=== PATIENT | male | born 1980 | race Two or more races ===

== ENCOUNTER 2019-08-16 14:07 | Inpatient (IN) | payer OTHER ==
[2019-08-16 19:29] VITALS: BMI 28.1
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
[2019-08-16] MEDS ORDERED: IBUPROFEN 400 MG TABLET (FP) PO PRN (19:54)
[2019-08-16] MEDS ORDERED: MAGNESIUM CITRATE 300 ML BOTTLE PO PRN (19:54)
[2019-08-16] MEDS ORDERED: MENTHOL/PHENOL 1 EACH UD MM PRN (19:54)
[2019-08-16] MEDS ORDERED: ACETAMINOPHEN 325 MG TABLET (FP) PO PRN ×2 (19:54)
[2019-08-16] MEDS ORDERED: NICOTINE POLACRILEX 2 MG GUM BUC PRN (19:54)
[2019-08-16] MEDS ORDERED: BISMUTH SUBSALICYLATE 524 MG/30 ML UD PO PRN (19:54)
[2019-08-16] MEDS ORDERED: MAG HYDROX/AL HYDROX/SIMETH 30 ML UNIT-DOSE CUP PO PRN (19:54)
[2019-08-16] MEDS ORDERED: MELATONIN 5 MG TABLETS PO PRN (19:54)
[2019-08-16] MEDS ORDERED: MAGNESIUM HYDROX 2400MG/30ML ORAL SUSPENSION 30 ML CUP PO PRN (19:54)
[2019-08-16] MEDS ORDERED: ALBUTEROL SO4 0.083% IH SOL 2.5 MG/3 ML VIAL.NEB. NEB PRN (19:55)
[2019-08-16] MEDS ORDERED: cloNIDine HCL 0.1 MG TABLET PO PRN (19:56)
[2019-08-16] MEDS ORDERED: METHADONE HCL 10 MG TABLET (FOR DETOX USE ONLY) PO ONE (19:56)
[2019-08-16] MEDS ORDERED: METHADONE (DETOX) 20 MG, METHADONE (DETOX) 5 MG PO SCH (20:05)
[2019-08-16] MEDS ORDERED: METHADONE HCL 10 MG TABLET (FOR DETOX USE ONLY) ONE (20:36)
[2019-08-16] MEDS ORDERED: METHADONE HCL 5 MG TABLET (FOR DETOX USE ONLY) ONE (20:37)
[2019-08-16] MEDS: SULFAMETHOXAZOLE/TRIMETHOPRIM 800MG/160MG D.S. TABLET PO SCH (22:35)
[2019-08-16] MEDS: THIAMINE HCL 100 MG TABLET (FP) PO SCH (22:35)
[2019-08-16] MEDS: hydrOXYzine PAMOATE 25 MG CAPSULE (FP) PO PRN (22:36)
[2019-08-16] MEDS: BACITRACIN/POLYMYXIN B SULFATE 15 GM TUBE TP SCH (22:43)
[2019-08-17] MEDS ORDERED: METHADONE HCL 10 MG TABLET (FOR DETOX USE ONLY) PO ONE (10:00)
[2019-08-17] MEDS: PRENATAL VITAMINS W/ FOLIC ACID TABLET (FP) PO SCH (10:03)
[2019-08-17] MEDS: SULFAMETHOXAZOLE/TRIMETHOPRIM 800MG/160MG D.S. TABLET PO SCH ×2 (10:03→22:48)
[2019-08-17] MEDS: BACITRACIN/POLYMYXIN B SULFATE 15 GM TUBE TP SCH ×2 (10:03→22:48)
[2019-08-17] MEDS: hydrOXYzine PAMOATE 25 MG CAPSULE (FP) PO PRN (10:05)
[2019-08-17] MEDS: METHOCARBAMOL 500 MG TABLET PO PRN (10:05)
--- NOTE | 2019-08-17 10:32 | PN ---
BHS COWS - Scale Resting Pulse: 0= [place] 80 or Below Sweatin= Beads of Sweat on Face Restless Observation: 1= Difficult to Sit Still Pupil Size: 0= Normal to Room Light Bone or Joint Aches: 4=Acute Joint/Muscle Pain Runny Nose/ Eye Tearin= None GI Upset > 30mins: 0= None Tremor Observation of Outstretched Hands: 2= Slight Tremor Visible Yawning Observation: 1= 1-2x During Session Anxiety or Irritability: 2=Irritable/Anxious Goose Flesh Skin: 0=Smooth Skin COWS Score: 13 S Progress Note (SOAP) Subjective: c/o anxiety, irritability, sweats, muscle aches, and agitation. Objective: 08/17/19 10:30 Vital Signs 08/17/19 08/17/19 08/17/19 03:30 06:02 09:24 Temperature 98.5 F 99.2 F Pulse Rate 73 80 Respiratory 18 16 18 Rate Blood Pressure 121/74 122/73 Labs pending. Assessment: 08/17/19 10:31 AOX3, in no acute respiratory distress. Full rom, ambulating in the unit. Withdrawal symptoms. Plan: continue detox.
[2019-08-17 10:58] LABS: ALBUMIN 3.5 g/dl (3.4-5.0); BILIRUBIN,TOTAL 0.7 mg/dL (0.2-1); BLOOD UREA NITROGEN 7.2 mg/dL (7-18); CALCIUM 8.9 mg/dL (8.5-10.1); CREATININE 0.8 mg/dL (0.55-1.3); POTASSIUM 4.2 mmol/L (3.5-5.1); TOT PROT 7.4 g/dl (6.4-8.2)
[2019-08-17 11:12] LABS: HEMATOCRIT 48.1 % (35.4-49); HEMOGLOBIN 16.4 GM/dL (11.7-16.9); MCH 31.7 pg (25.7-33.7); MCHC 34.1 g/dl (32.0-35.9); MEAN CELL VOLUME 93.2 fl (80-96); MEAN PLT VOLUME 8.3 fl (7.5-11.1); PLATELET COUNT 314 K/MM3 (134-434); RBC 5.16 M/mm3 (4.00-5.60); RDW 14.4 % (11.9-15.9); WHITE BLOOD COUNT 10.5 K/mm3 (4.0-10.0)
--- NOTE | 2019-08-17 19:14 | PN ---
[facility]ley Progress Note Note: patient with less withdrawal symptom Vital Signs Temperature 100.2 F H 08/17/19 17:17 Pulse Rate 66 08/17/19 17:17 Respiratory Rate 18 08/17/19 17:17 Blood Pressure 128/76 08/17/19 17:17 O2 Sat by Pulse Oximetry (%) will d/c methadone 25 mgs tonight close monitoring encourage oral fluid
[2019-08-17] MEDS: THIAMINE HCL 100 MG TABLET (FP) PO SCH (22:48)
--- NOTE | 2019-08-18 09:31 | PN ---
BHS COWS - Scale Resting Pulse: 1= [place] 81-100 Sweatin= Chills/Flushing Restless Observation: 0= Sits Still Pupil Size: 1= Pupils >than Normal Bone or Joint Aches: 1= Mild Discomfort Runny Nose/ Eye Tearin= None GI Upset > 30mins: 1= Stomach Cramp Tremor Observation of Outstretched Hands: 2= Slight Tremor Visible Yawning Observation: 0= None Anxiety or Irritability: 2=Irritable/Anxious Goose Flesh Skin: 3=Piloerection COWS Score: 12 BHS Progress Note (SOAP) Subjective: 39 years old male admitted on 08/16/19 for opiate withdrawal sx management treated with methadone detox regimen patient tolerated well ate breakfast resting on bed feeling hot and cold left arm dry dressing clean and dry intact patient agrees to allow the provider to examine the skin abrasion later Objective: 08/18/19 09:45 Vital Signs Temperature 96.9 F L 08/18/19 09:01 Pulse Rate 81 08/18/19 09:01 Respiratory Rate 18 08/18/19 09:01 Blood Pressure 120/73 08/18/19 09:01 O2 Sat by Pulse Oximetry (%) Laboratory Last Values WBC 10.5 K/mm3 (4.0-10.0) H 08/17/19 07:50 RBC 5.16 M/mm3 (4.00-5.60) 08/17/19 07:50 Hgb 16.4 GM/dL (11.7-16.9) 08/17/19 07:50 Hct 48.1 % (35.4-49) 08/17/19 07:50 MCV 93.2 fl (80-96) 08/17/19 07:50 MCH 31.7 pg (25.7-33.7) 08/17/19 07:50 MCHC 34.1 g/dl (32.0-35.9) 08/17/19 07:50 RDW 14.4 % (11.9-15.9) 08/17/19 07:50 Plt Count 314 K/MM3 (134-434) D 08/17/19 07:50 MPV 8.3 fl (7.5-11.1) 08/17/19 07:50 Sodium 138 mmol/L (136-145) 08/17/19 07:50 Potassium 4.2 mmol/L (3.5-5.1) 08/17/19 07:50 Chloride 104 mmol/L (98-107) 08/17/19 07:50 Carbon Dioxide 28 mmol/L (21-32) 08/17/19 07:50 Anion Gap 6 MMOL/L (8-16) L 08/17/19 07:50 BUN 7.2 mg/dL (7-18) 08/17/19 07:50 Creatinine 0.8 mg/dL (0.55-1.3) 08/17/19 07:50 Est GFR (CKD-EPI)AfAm 128.60 08/17/19 07:50 Est GFR (CKD-EPI)NonAf 110.96 08/17/19 07:50 Random Glucose 79 mg/dL (74-106) 08/17/19 07:50 Calcium 8.9 mg/dL (8.5-10.1) 08/17/19 07:50 Total Bilirubin 0.7 mg/dL (0.2-1) 08/17/19 07:50 AST 39 U/L (15-37) H 08/17/19 07:50 ALT 46 U/L (13-61) 08/17/19 07:50 Alkaline Phosphatase 104 U/L (45-117) 08/17/19 07:50 Total Protein 7.4 g/dl (6.4-8.2) 08/17/19 07:50 Albumin 3.5 g/dl (3.4-5.0) 08/17/19 07:50 RPR Titer Nonreactive (NONREACTIVE) 08/17/19 07:50 lab noted Assessment: 08/18/19 09:46 opiate withdrawal sx discuss medication assisted treatment program Plan: continue methadone detox regimen forklift picker narcan from pharmacy
[2019-08-18] MEDS ORDERED: METHADONE HCL 5 MG TABLET (FOR DETOX USE ONLY) PO ONE (10:00)
[2019-08-18] MEDS: PRENATAL VITAMINS W/ FOLIC ACID TABLET (FP) PO SCH (10:09)
[2019-08-18] MEDS: SULFAMETHOXAZOLE/TRIMETHOPRIM 800MG/160MG D.S. TABLET PO SCH ×2 (10:09→21:31)
[2019-08-18] MEDS: BACITRACIN/POLYMYXIN B SULFATE 15 GM TUBE TP SCH ×2 (10:10→21:33)
[2019-08-18] MEDS: hydrOXYzine PAMOATE 25 MG CAPSULE (FP) PO PRN (17:18)
[2019-08-18] MEDS: THIAMINE HCL 100 MG TABLET (FP) PO SCH (21:32)
[2019-08-19] MEDS: METHOCARBAMOL 500 MG TABLET PO PRN (06:23)
[2019-08-19] MEDS: hydrOXYzine PAMOATE 25 MG CAPSULE (FP) PO PRN (06:23)
[2019-08-19 09:20] VITALS: BP 120/78; PULSE 86; TEMP 98.5
--- NOTE | 2019-08-19 09:35 | PN ---
BHS COWS - Scale Resting Pulse: 1= [place] 81-100 Sweatin= Chills/Flushing Restless Observation: 0= Sits Still Pupil Size: 0= Normal to Room Light Bone or Joint Aches: 1= Mild Discomfort Runny Nose/ Eye Tearin= Nasal Congestion GI Upset > 30mins: 1= Stomach Cramp Tremor Observation of Outstretched Hands: 1= Tremor [place], Not Seen Yawning Observation: 1= 1-2x During Session Anxiety or Irritability: 1=Feels Anxious/Irritable Goose Flesh Skin: 0=Smooth Skin COWS Score: 8 BHS Progress Note (SOAP) Subjective: 39 years old male admitted on 08/16/19 for opiate withdrawal sx management treated with methadone detox regimen patient tolerated well feeling better today had low grade fever early this morning ate breakfast tolerated food well ambulating on hallway discuss aftercare with staff Objective: 08/19/19 09:32 Vital Signs Temperature 98.5 F 08/19/19 09:09 Pulse Rate 86 08/19/19 09:09 Respiratory Rate 18 08/19/19 09:09 Blood Pressure 120/78 08/19/19 09:09 O2 Sat by Pulse Oximetry (%) Laboratory Last Values WBC 10.5 K/mm3 (4.0-10.0) H 08/17/19 07:50 RBC 5.16 M/mm3 (4.00-5.60) 08/17/19 07:50 Hgb 16.4 GM/dL (11.7-16.9) 08/17/19 07:50 Hct 48.1 % (35.4-49) 08/17/19 07:50 MCV 93.2 fl (80-96) 08/17/19 07:50 MCH 31.7 pg (25.7-33.7) 08/17/19 07:50 MCHC 34.1 g/dl (32.0-35.9) 08/17/19 07:50 RDW 14.4 % (11.9-15.9) 08/17/19 07:50 Plt Count 314 K/MM3 (134-434) D 08/17/19 07:50 MPV 8.3 fl (7.5-11.1) 08/17/19 07:50 Sodium 138 mmol/L (136-145) 08/17/19 07:50 Potassium 4.2 mmol/L (3.5-5.1) 08/17/19 07:50 Chloride 104 mmol/L (98-107) 08/17/19 07:50 Carbon Dioxide 28 mmol/L (21-32) 08/17/19 07:50 Anion Gap 6 MMOL/L (8-16) L 08/17/19 07:50 BUN 7.2 mg/dL (7-18) 08/17/19 07:50 Creatinine 0.8 mg/dL (0.55-1.3) 08/17/19 07:50 Est GFR (CKD-EPI)AfAm 128.60 08/17/19 07:50 Est GFR (CKD-EPI)NonAf 110.96 08/17/19 07:50 Random Glucose 79 mg/dL (74-106) 08/17/19 07:50 Calcium 8.9 mg/dL (8.5-10.1) 08/17/19 07:50 Total Bilirubin 0.7 mg/dL (0.2-1) 08/17/19 07:50 AST 39 U/L (15-37) H 08/17/19 07:50 ALT 46 U/L (13-61) 08/17/19 07:50 Alkaline Phosphatase 104 U/L (45-117) 08/17/19 07:50 Total Protein 7.4 g/dl (6.4-8.2) 08/17/19 07:50 Albumin 3.5 g/dl (3.4-5.0) 08/17/19 07:50 RPR Titer Nonreactive (NONREACTIVE) 08/17/19 07:50 lab noted Assessment: 08/19/19 09:33 opiate withdrawal sx Plan: continue methadone detox regimen
[2019-08-19] MEDS ORDERED: METHADONE HCL 10 MG TABLET (FOR DETOX USE ONLY) PO ONE (10:00)
[2019-08-19] MEDS: SULFAMETHOXAZOLE/TRIMETHOPRIM 800MG/160MG D.S. TABLET PO SCH (10:18)
[2019-08-19] MEDS: BACITRACIN/POLYMYXIN B SULFATE 15 GM TUBE TP SCH (10:18)
[2019-08-19] MEDS: PRENATAL VITAMINS W/ FOLIC ACID TABLET (FP) PO SCH (10:18)
--- NOTE | 2019-08-19 13:48 | DS ---
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 patient is alert oriented x 3 respiratory clear lung bilaterally on auscultation abdomen soft no rebound tenderness skin warm and dry - Physical Exam Results Vital Signs: Vital Signs Temperature 98.5 F 08/19/19 09:09 Pulse Rate 86 08/19/19 09:09 Respiratory Rate 18 08/19/19 09:09 Blood Pressure 120/78 08/19/19 09:09 O2 Sat by Pulse Oximetry (%) Pertinent Admission Physical Exam Findings: opiate withdrawal sx Laboratory Last Values WBC 10.5 K/mm3 (4.0-10.0) H 08/17/19 07:50 RBC 5.16 M/mm3 (4.00-5.60) 08/17/19 07:50 Hgb 16.4 GM/dL (11.7-16.9) 08/17/19 07:50 Hct 48.1 % (35.4-49) 08/17/19 07:50 MCV 93.2 fl (80-96) 08/17/19 07:50 MCH 31.7 pg (25.7-33.7) 08/17/19 07:50 MCHC 34.1 g/dl (32.0-35.9) 08/17/19 07:50 RDW 14.4 % (11.9-15.9) 08/17/19 07:50 Plt Count 314 K/MM3 (134-434) D 08/17/19 07:50 MPV 8.3 fl (7.5-11.1) 08/17/19 07:50 Sodium 138 mmol/L (136-145) 08/17/19 07:50 Potassium 4.2 mmol/L (3.5-5.1) 08/17/19 07:50 Chloride 104 mmol/L (98-107) 08/17/19 07:50 Carbon Dioxide 28 mmol/L (21-32) 08/17/19 07:50 Anion Gap 6 MMOL/L (8-16) L 08/17/19 07:50 BUN 7.2 mg/dL (7-18) 08/17/19 07:50 Creatinine 0.8 mg/dL (0.55-1.3) 08/17/19 07:50 Est GFR (CKD-EPI)AfAm 128.60 08/17/19 07:50 Est GFR (CKD-EPI)NonAf 110.96 08/17/19 07:50 Random Glucose 79 mg/dL (74-106) 08/17/19 07:50 Calcium 8.9 mg/dL (8.5-10.1) 08/17/19 07:50 Total Bilirubin 0.7 mg/dL (0.2-1) 08/17/19 07:50 AST 39 U/L (15-37) H 08/17/19 07:50 ALT 46 U/L (13-61) 08/17/19 07:50 Alkaline Phosphatase 104 U/L (45-117) 08/17/19 07:50 Total Protein 7.4 g/dl (6.4-8.2) 08/17/19 07:50 Albumin 3.5 g/dl (3.4-5.0) 08/17/19 07:50 RPR Titer Nonreactive (NONREACTIVE) 08/17/19 07:50 lab noted - Treatment Hospital Course: Detox Protocol Followed, Detoxed Safely, Responded well, Discharged Condition Good, Rehab Referral Accepted Patient has Accepted [facility] - Medication Discharge Medications: Ambulatory Orders Naloxone HCl [Narcan] 4 mg NS ASDIR PRN #1 spray 08/18/19 Albuterol Sulfate Inhaler - [Ventolin HFA Inhaler -] 2 inh PO Q4H PRN #1 inhaler 08/19/19 - Diagnosis (1) Hepatitis C Current Visit: Yes Status: Chronic Qualifiers: Viral hepatitis chronicity: chronic Hepatic coma status: without hepatic coma Qualified Code(s): B18.2 - Chronic viral hepatitis C (2) Nicotine dependence Current Visit: Yes Status: Acute Qualifiers: Nicotine product type: cigarettes Substance use status: in withdrawal Qualified Code(s): F17.213 - Nicotine dependence, cigarettes, with withdrawal (3) Opioid dependence with withdrawal Current Visit: Yes Status: Acute - AMA Did Patient Leave Against Medical Advice: No COWS (PN) - Opiate Withdrawal Resting Pulse: 0= [place] 80 or Below Sweatin= Chills/Flushing Restless Observation: 0= Sits Still Pupil Size: 0= Normal to Room Light Bone or Joint Aches: 1= Mild Discomfort Runny Nose/ Eye Tearin= None GI Upset > 30mins: 0= None Tremor Observation of Outstretched Hands: 1= Tremor [place], Not Seen Yawning Observation: 0= None Anxiety or Irritability: 1=Feels Anxious/Irritable Goose Flesh Skin: 0=Smooth Skin COWS Score: 4
[2019-08-20] MEDS ORDERED: METHADONE HCL 5 MG TABLET (FOR DETOX USE ONLY) PO ONE (10:00)
== END 2019-08-19 10:28 | disposition home or self-care (01) | DRG 773 ==
LOC: YASAS 14:07 → Y3N 19:59
PROVIDERS: ADMIT Allergy & Immunology; ATTEND Allergy & Immunology
PROC: HZ2ZZZZ Detoxification Services for Substance Abuse Treatment (ICD-10-PCS; principal; 2019-08-16)
DX: F11.23 Opioid dependence with withdrawal (principal); F12.10 Cannabis abuse, uncomplicated; F19.10 Other psychoactive substance abuse, uncomplicated; F17.210 Nicotine dependence, cigarettes, uncomplicated; J45.909 Unspecified asthma, uncomplicated; B18.2 Chronic viral hepatitis C; L02.413 Cutaneous abscess of right upper limb
CPT/HCPCS: 36415; 80053; 85027; 86593